=== PATIENT | male | born 1955 | race Caucasian/White ===

== ENCOUNTER 2021-03-16 18:59 | Emergency (ER) | payer OTHER ==
[~2021-03-16] VITALS: Ht 188 cm; Wt 104.3 kg
[2021-03-16] MEDS ORDERED: AMLODIPINE BESYL5 MG PO (22:01)
[2021-03-16] MEDS ORDERED: TRAZODONE HCL150 MG PO (22:01)
[2021-03-16] MEDS ORDERED: TAMSULOSIN HCL0.4 MG (22:01)
[2021-03-16] MEDS ORDERED: ATORVASTATIN CA40 MG PO (22:01)
== END 2021-03-16 21:00 | disposition home or self-care (01) ==
LOC: ED 18:59
DX: S30.1XXA Contusion of abdominal wall, initial encounter (principal); W22.8XXA Striking against or struck by other objects, initial encounter
CPT/HCPCS: 74177; 80053; 81001; 83690; 85025; 99284-25; Q9967